=== PATIENT | female | born 1990 | race Caucasian/White ===

== ENCOUNTER 2017-01-05 21:26 | Emergency (ER) | payer OTHER ==
--- NOTE | 2017-01-05 21:27 | UC ---
Upper Extremity HPI - HPI Summary HPI Summary: 26 year old female presents with right wrist/hand pain. She was seen in the ER last night. - History of Current Complaint Stated Complaint: WRIST INJURY Time Seen by Provider: 01/05/17 21:27 - Allergies/Home Medications Allergies/Adverse Reactions: Allergies Allergy/AdvReac Type Severity Reaction Status Date / Time Penicillins Allergy Hives Verified 01/05/17 21:27 Pertussis Vaccine Allergy See Comment Verified 01/05/17 21:27 Risperidone [From Risperdal] Allergy Rash Verified 01/05/17 21:27 Home Medications: Home Medications Vitamin 01/05/17 [History] Sertraline* [Zoloft*] 200 mg PO DAILY 01/05/17 [History Confirmed 01/05/17] PMH/Surg Hx/FS Hx/Imm Hx - Social History Alcohol Use: None Substance Use Type: None Smoking Status (MU): Never Smoked Tobacco Review of Systems Constitutional: Negative Skin: Negative Eyes: Negative ENT: Negative Respiratory: Negative Cardiovascular: Negative Gastrointestinal: Negative Genitourinary: Negative Motor: Negative Neurovascular: Negative Musculoskeletal: Arthralgia, Myalgia, Other: - right wrist pain Neurological: Negative Psychological: Negative All Other Systems Reviewed And Are Negative: Yes Physical Exam Triage Information Reviewed: Yes Eye Exam: Normal ENT Exam: Normal Dental Exam: Normal Neck exam: Normal Neck: Positive: 1 Respiratory Exam: Normal Cardiovascular Exam: Normal Abdominal Exam: Normal Musculoskeletal: Positive: Strength Limited @, ROM Limited @, Other: - right wrist/hand pain/swelling Neurological Exam: Normal Psychological Exam: Normal Skin Exam: Normal Upper Extremity Course/Dx - Differential Dx/Diagnosis Provider Diagnoses: right wrist/hand swelling Discharge - Discharge Plan Condition: Stable Disposition: HOME Patient Education Materials: Wrist Injury (ED), Arthralgia (ED), Swollen Joint (ED) Referrals: No Primary Care Phys,NOPCP [Primary Care Provider] -
[2017-01-05 21:32] VITALS: BP 145/92
[2017-01-05] MEDS ORDERED: Ibuprofen TAB* 400 MG PO ONE (21:48)
[2017-01-05] MEDS ORDERED: Acetaminophen TAB* 325 MG PO ONE (21:54)
--- NOTE | 2017-01-05 22:10 | RAD ---
Indication: Right wrist injury 3 views of the wrist demonstrates no fracture. No other bone or joint abnormality is identified. IMPRESSION: NO FRACTURE OF THE WRIST IS NOTED.
--- NOTE | 2017-01-05 22:10 | RAD ---
Indication: Fall, right hand injury. 4 views of the right hand demonstrates no fracture. No other bone or joint abnormality is noted. IMPRESSION: No fracture of the hand is noted.
== END 2017-01-05 22:25 | disposition home or self-care (01) ==
LOC: UCEAST 21:26
DX: M25.431 Effusion, right wrist (principal); M79.89 Other specified soft tissue disorders
CPT/HCPCS: 99213; A9270-GY; G0463